=== PATIENT | female | born 1960 | race Caucasian/White ===

== ENCOUNTER 2018-11-29 09:36 | Emergency (ER) | payer MEDICARE, BC, MEDICAID ==
[2018-11-29 10:37] LABS: ABSOLUTE NEUTROPHIL COUNT 6.12; EOS % 1.1 % (0-6); GRAN % 73.5 % (47-80); HEMOGLOBIN 15.1 gm/dl (11.6-16.0); LYMPH % 11.7 % (16-45); MEAN CELL VOLUME 103.3 fl (81-97); MEAN CORPUSCULAR HEMOGLOBIN 33.2 pg (27-33); MEAN CORPUSCULAR HGB CONC 32.1 g/dl (32-36); MEAN PLATELET VOLUME 9.7 fl (7.4-10.4); MONO % 12.7 % (0-9); PLATELET COUNT 277 K/uL (130-400); RED BLOOD COUNT 4.55 M/uL (3.80-5.40); WHITE BLOOD COUNT W/O DIFF 8.3 K/uL (4.2-12.2)
[2018-11-29 10:43] LABS: BLOOD UREA NITROGEN 17 mg/dL (6-20)
[2018-11-29 10:44] LABS: CREATININE 0.7 mg/dL (0.5-0.9); EST GLOMERULAR FILTRATION RATE > 60 mL/min
[2018-11-29 10:46] LABS: GLUCOSE,RANDOM 105 mg/dL (74-109)
[2018-11-29] MEDS ORDERED: AMPICILLIN SODIUM/SULBACTAM NA 1.5 G in 0.9 % SODIUM CHLORIDE 100ML 100 ML IVPB ONE (11:30)
[2018-11-29] MEDS ORDERED: METHYLPREDNISOLONE SOD 40MG/VIAL IVP ONE (11:32)
--- NOTE | 2018-11-29 12:10 | Emergency Department Record ---
History of Present Illness - General Chief complaint: Facial Swelling Stated complaint: SWELLING IN FACE Time Seen by Provider: 11/29/18 09:58 Source: Patient, Family Mode of Arrival: Ambulatory Limitations: No limitations - History of Present Illness Initial Comments: pt has swelling to r jaw and lips. pt had this once before and abx cleared it up. the area is tender MD Complaint: Facial swelling -: Unknown Symptoms: Facial swelling, Lip swelling Treatment Prior to Arrival: None - Related Data Home Medications Medication Instructions Recorded Confirmed Last Taken Cholecalciferol (Vitamin D3) 2,000 unit PO DAILY 11/29/18 11/29/18 11/29/18 [Vitamin D3] Levothyroxine Sodium [Synthroid] 75 mcg PO DAILY 11/29/18 11/29/18 11/29/18 Mv-Min/FA/Vit K/Lycop/Lut/Zeax 1 each PO DAILY 11/29/18 11/29/18 11/29/18 [Ocuvite Eye + Multi Tablet] Omeprazole [Prilosec] 20 mg PO DAILY 11/29/18 11/29/18 11/29/18 Previous Rx's Medication Instructions Recorded Amoxicillin/Potassium Clav 10 ml PO BID #200 ml 11/29/18 [Augmentin 400Mg/5Ml] Allergies Allergy/AdvReac Type Severity Reaction Status Date / Time codeine AdvReac NAUSEA AND Verified 11/29/18 09:54 VOMITING Travel Screening - Travel/Exposure Within Last 30 Days Have you traveled within the last 30 days?: No - Travel/Exposure Within Last Year Have you traveled outside the [place] in the last year?: No - Additonal Travel Details Have you been exposed to anyone with a communicable illness?: No - Travel Symptoms Symptom Screening: None Review of Systems Reviewed: No additional complaints except as noted below Constitutional: Reports: As per HPI. Denies: Chills, Fever, Malaise, Night sweats, Weakness, Weight change Eyes: Reports: As per HPI. Denies: Eye discharge, Eye pain, Photophobia, Vision change ENT: Reports: As per HPI. Denies: Congestion, Dental pain, Ear pain, Epistaxis, Hearing loss, Throat pain Respiratory: Reports: As per HPI. Denies: Cough, Dyspnea, Hemoptysis, Stridor, Wheezes Cardiovascular: Reports: As per HPI. Denies: Arrhythmia, Chest pain, Dyspnea on exertion, Edema, Murmurs, Orthopnea, Palpitations, Paroxysmal nocturnal dyspnea, Rheumatic Fever, Syncope Endocrine: Reports: As per HPI. Denies: Fatigue, Heat or cold intolerance, Polydipsia, Polyuria Gastrointestinal: Reports: As per HPI. Denies: Abdominal pain, Constipation, Diarrhea, Hematemesis, Hematochezia, Melena, Nausea, Vomiting Genitourinary: Reports: As per HPI. Denies: Abnormal menses, Discharge, Dyspareunia, Dysuria, Frequency, Hematuria, Incontinence, Retention, Urgency Musculoskeletal: Reports: As per HPI. Denies: Arthralgia, Back pain, Gout, Joint swelling, Myalgia, Neck pain Skin: Reports: As per HPI. Denies: Bruising, Change in color, Change in hair/nails, Lesions, Pruritus, Rash Neurological: Reports: As per HPI. Denies: Abnormal gait, Confusion, Headache, Numbness, Paresthesias, Seizure, Tingling, Tremors, Vertigo, Weakness Psychiatric: Reports: As per HPI. Denies: Anxiety, Auditory hallucinations, Depression, Homicidal thoughts, Suicidal thoughts, Visual hallucinations Hematological/Lymphatic: Reports: As per HPI. Denies: Anemia, Blood Clots, Easy bleeding, Easy bruising, Swollen glands Past Medical History - SOCIAL HISTORY Smoking Status: Never smoker Alcohol Use: Occasional Drug Use: None - RESPIRATORY Hx Respiratory Disorders: No - CARDIOVASCULAR Hx Cardio Disorders: No - NEURO Hx Neuro Disorders: No Comment:: Downs - GI Hx GI Disorders: Yes Hx Reflux: Yes - Hx Genitourinary Disorders: No - ENDOCRINE Hx Endocrine Disorders: Yes Hx Diabetes: No Hx Thyroid Disease: Yes - MUSCULOSKELETAL Hx Musculoskeletal Disorders: Yes Hx Arthritis: Yes - PSYCH Hx Psych Problems: Yes Comment:: Down syndrome - HEMATOLOGY/ONCOLOGY Hx Hematology/Oncology Disorders: No Family Medical History Any Significant Family History?: No Physical Exam - General General Appearance: Alert, Oriented x3, Cooperative, No acute distress - Head Head exam: Normal inspection - Eye Eye exam: Normal appearance, PERRL, EOMI Pupils: Normal accommodation - ENT ENT exam: Normal exam, Mucous membranes moist, Normal external ear exam, Normal orophraynx Ear exam: Normal external inspection. negative: External canal tenderness Nasal Exam: Normal inspection. negative: Discharge, Sinus tenderness Mouth exam: Tongue normal, Other (swelling and tenderness of r lower jaw) Teeth exam: Normal inspection, Gingival enlargement. negative: Dental caries Throat exam: Normal inspection. negative: Tonsillar erythema, Tonsillar exudate - Neck Neck exam: Normal inspection, Full ROM. negative: Tenderness - Respiratory Respiratory exam: Normal lung sounds bilaterally. negative: Respiratory distress - Cardiovascular Cardiovascular Exam: Regular rate, Normal rhythm, Normal heart sounds - GI/Abdominal GI/Abdominal exam: Soft, Normal bowel sounds. negative: Tenderness - Rectal Rectal exam: Deferred - exam: Deferred - Extremities Extremities exam: Normal inspection, Full ROM, Normal capillary refill. negative: Tenderness - Back Back exam: Reports: Normal inspection, Full ROM. Denies: Muscle spasm, Rash noted, Tenderness - Neurological Neurological exam: Alert, CN II-XII intact, Normal gait, Oriented X3 - Psychiatric Psychiatric exam: Normal affect, Normal mood - Skin Skin exam: Dry, Intact, Normal color, Warm Course Vital Signs 11/29/18 11/29/18 09:42 11:51 Temperature 98.7 F Pulse Rate 78 Pulse Rate [ 75 Pulse Ox Probe] Respiratory 18 16 Rate Blood Pressure 115/80 Blood Pressure 115/67 [Right Arm] Pulse Ox 99 99 h - Reevaluation(s) Reevaluation #1: 11/29/18 12:10 pt has downs syndrome.. she has swelling r lower jaw that does not cross the midline. ct shows cellulitis Medical Decision Making - Lab Data Result diagrams: 11/29/18 10:27 11/29/18 10:27 Lab Results 11/29/18 11/29/18 Range/Units 10:27 10:27 WBC 8.3 (4.2-12.2) K/uL RBC 4.55 (3.80-5.40) M/uL Hgb 15.1 (11.6-16.0) gm/dl Hct 47.0 (35.0-47.0) % MCV 103.3 H (81-97) fl MCH 33.2 H (27-33) pg MCHC 32.1 (32-36) g/dl RDW 16.0 H (11.5-14.5) % Plt Count 277 (130-400) K/uL MPV 9.7 (7.4-10.4) fl Gran % 73.5 (47-80) % Lymphocytes % 11.7 L (16-45) % Monocytes % 12.7 H (0-9) % Eosinophils % 1.1 (0-6) % Basophils % 1.0 (0-6) % Absolute Neutrophils 6.12 Sodium 139 (136-145) mmol/L Potassium 4.6 H (3.4-4.5) mmol/L Chloride 102 (98-107) mmol/L Carbon Dioxide 25.0 (22-29) mmol/L Anion Gap 12.0 (7-16) BUN 17 (6-20) mg/dL Creatinine 0.7 (0.5-0.9) mg/dL Estimated GFR > 60 mL/min Random Glucose 105 (74-109) mg/dL Calcium 9.1 (8.6-10.0) mg/dL Disposition Disposition: Discharge Clinical Impression: Facial cellulitis Disposition: Home, Self-Care Condition: (1) Good Instructions: Cellulitis (ED) Additional Instructions: follow up with family doctor on friday. return sooner if worse. Prescriptions: Amoxicillin/Potassium Clav [Augmentin 400Mg/5Ml] 10 ml PO BID #200 ml Quality - Quality Measures Quality Measures: N/A - Blood Pressure Screening Does Patient Have Any of the Following: No Blood Pressure Classification: Pre-Hypertensive BP Reading Systolic Measurement: 115 Diastolic Measurement: 80 Screening for High Blood Pressure: < Pre-Hypertensive BP, F/U Documented > [G8950] Pre-Hypertensive Follow-up Interventions: Follow-up with rescreen every year.
--- NOTE | 2018-12-02 06:27 | CT SCAN REPORT ---
EXAM: CT SCAN SOFT TISSUE NECK WO CONTRAST HISTORY: SWELLING OF THE LIPS AND CHEEKS SINCE THIS MORNING. HISTORY OF FACIAL CELLULITIS IN May,. TECHNIQUE: Noncontrast CT soft tissue neck. COMPARISON: None. FINDINGS: The parotid and submandibular salivary glands appear normal. There is no airway compromise. Epiglottis appears normal. Vocal cords appear normal. No sign of lymphadenopathy, mass, or cyst. No evidence of abscess. There does appear to be some soft tissue edema in the perioral region mostly on the right side but there is no sign of any drainable fluid collection. Underlying bony structures of the mandible and facial bone show no suspicious lytic or blastic lesion. No evidence of fracture. No radiopaque foreign body or soft tissue air. Supraclavicular region shows no adenopathy. Thyroid appears unremarkable. IMPRESSION: 1. PERIORAL SOFT TISSUE EDEMA WITHOUT EVIDENCE OF ABSCESS, HEMATOMA, OR RADIOPAQUE FOREIGN BODY. ETIOLOGY NOT CLEAR. 2. THE REST OF THE SOFT TISSUE NECK WITHOUT CONTRAST IS UNREMARKABLE. JOB NUMBER: [id number] [facility]
== END 2018-11-29 12:33 | disposition home or self-care (01) ==
LOC: ER 09:36
DX: L03.211 Cellulitis of face (principal); K13.0 Diseases of lips; Q90.9 Down syndrome, unspecified
CPT/HCPCS: 70490; 80048; 85025; 96365; 96375; 99284; J0295; J2920